=== PATIENT | female | born 1965 | race Caucasian/White ===

== ENCOUNTER 2016-05-14 11:30 | Outpatient (RCR) | payer MEDICARE, MEDICAID ==
[~2016-05-14 11:30] MED LIST: CRANBERRY FRUI405 MG PO; DEBROX OT; DURICEF500 MG PO; FLUOCINONIDE0.05% TP; FOLIC ACID0.8 MG PO; MOBIC 7.5MG7.5 MG PO; MULTI VITAMINS1 TAB PO; PRILOSEC 20MG20 MG PO; TYLENOL 325MG325 MG PO; UNABLE; VICKS VAPORUB TP; VITAMIN C500 MG PO; [UNRECOGNIZED DRUG - OTHER]
[2016-05-17] MEDS ORDERED: FOLIC ACID 11 MG/TA1 PO (12:20)
[2016-05-17] MEDS ORDERED: VITAMIN C500 MG PO (12:20)
[2016-05-17] MEDS ORDERED: CRANBERRY FRUI425 MG PO (12:21)
[2016-05-17] MEDS ORDERED: PRILOSEC 20MG20 MG PO (12:21)
[2016-05-17] MEDS ORDERED: MOBIC 7.5MG7.5 MG PO (12:22)
[2016-05-17] MEDS ORDERED: ZYRTEC 10MG10 MG PO (12:25)
[2016-05-17] MEDS ORDERED: DEBROX OT (12:25)
[2016-05-17] MEDS ORDERED: FLONASEALLERGY NS (12:25)
== END 2016-05-17 14:25 | disposition home or self-care (01) ==
LOC: WSPT 11:30
DX: R26.89 Other abnormalities of gait and mobility (principal)
CPT/HCPCS: G8979-GP; G8980-GP

== ENCOUNTER 2016-05-17 11:42 | Emergency (ER) | payer MEDICARE, MEDICAID ==
[~2016-05-17] VITALS: Ht 152.4 cm; Wt 50.0 kg
[2016-05-17 11:45] VITALS: TEMP 98.2
[2016-05-17] MEDS ORDERED: VITAMIN C500 MG PO (12:20)
[2016-05-17] MEDS ORDERED: FOLIC ACID 11 MG/TA1 PO (12:20)
[2016-05-17] MEDS ORDERED: PRILOSEC 20MG20 MG PO (12:21)
[2016-05-17] MEDS ORDERED: CRANBERRY FRUI425 MG PO (12:21)
[2016-05-17] MEDS ORDERED: MOBIC 7.5MG7.5 MG PO (12:22)
[2016-05-17] MEDS ORDERED: FLONASEALLERGY NS (12:25)
[2016-05-17] MEDS ORDERED: ZYRTEC 10MG10 MG PO (12:25)
[2016-05-17] MEDS ORDERED: DEBROX OT (12:25)
[2016-05-17 12:27] LABS: BASO % 0.5 % (0.0-2.0); EOS # 0.2 (0.0-0.7); EOS % 2.3 % (0-4.0); GRAN # 5.8 (1.4-6.5); GRAN % 66.3 % (42.2-75.2); LYMPH # 1.9 (1.2-3.4); LYMPH % 22.2 % (20.0-51.0); MEAN CELL VOLUME 92 fl (80.0-100.0); MEAN CORPUSCULAR HGB CONC 31 g/dl (33.0-37.0); MEAN PLATELET VOLUME 10.3 fl (7.4-10.4); MONO # 0.7 (0.1-0.6); MONO % 8.5 % (1.7-9.3); PLATELET COUNT 197 K/mm3 (130-400); RED BLOOD COUNT 3.77 M/mm3 (4.10-5.30); REDCELL DISTRIBUTION WIDTH-CV 13.8 % (11.5-14.5); WHITE BLOOD COUNT 8.7 K/mm3 (4.8-10.8)
[2016-05-17 12:30] LABS: ADJUSTED CALCIUM 9.5 mg/dL (8.4-10.2); ALBUMIN 3.8 gm/dL (3.5-5.0); BILIRUBIN,TOTAL 0.8 mg/dL (0.0-1.0); CALCIUM 9.3 mg/dL (8.4-10.2); CREATININE, serum 0.64 mg/dL (0.52-1.25); HEMATOCRIT 34.7 % (37.0-47.0); HEMOGLOBIN 10.8 g/dl (12.5-16.0); MEAN CORPUSCULAR HEMOGLOBIN 29 pg (27.0-31.0); POTASSIUM 5.4 mmol/L (3.4-5.0); TOTAL PROTEIN 6.7 gm/dL (6.4-8.2)
[2016-05-17 13:10] LABS: PH 5 (5-8); SQUAMOUS EPITHELIAL 0-2 /hpf; URINE APPEARANCE Clear; URINE BACTERIA Rare /hpf; URINE BILIRUBIN Negative (NEGATIVE); URINE BLOOD Negative (NEGATIVE); URINE COLOR Yellow; URINE GLUCOSE Negative (NEGATIVE); URINE KETONE Negative (NEGATIVE); URINE RBC 0-2 /hpf; URINE UROBILINOGEN Negative (NEGATIVE); URINE WBC 0-2 /hpf
[2016-05-17 13:48] VITALS: BP 128/78; PULSE 88
== END 2016-05-17 13:50 | disposition home or self-care (01) ==
LOC: COL.ER 11:42
PROVIDERS: Emergency Medicine
DX: S30.0XXA Contusion of lower back and pelvis, initial encounter (principal); S30.1XXA Contusion of abdominal wall, initial encounter; W18.30XA Fall on same level, unspecified, initial encounter; Y92.199 Unspecified place in other specified residential institution as the place of occurrence of the external cause; W50.0XXA Accidental hit or strike by another person, initial encounter; E86.0 Dehydration

== ENCOUNTER 2016-06-04 10:40 | Emergency (ER) | payer MEDICARE, MEDICAID ==
[~2016-06-04 10:40] MED LIST changes: +CRANBERRY FRUI425 MG PO; +FLONASEALLERGY NS; +FOLIC ACID 11 MG/TA1 PO; +ZYRTEC 10MG10 MG PO
[2016-06-04 10:42] VITALS: PULSE 82; TEMP 97.4
[2016-06-04] MEDS ORDERED: ZOO CHEWS1 CTB PO (11:17)
[2016-06-04 12:05] VITALS: BP 118/91
== END 2016-06-04 12:05 | disposition home or self-care (01) ==
LOC: COL.ER 10:40
DX: S93.402A Sprain of unspecified ligament of left ankle, initial encounter (principal); W23.1XXA Caught, crushed, jammed, or pinched between stationary objects, initial encounter

== ENCOUNTER 2017-01-21 13:00 | Outpatient (RCR) | payer MEDICARE, MEDICAID ==
[~2017-01-21 13:00] MED LIST changes: +ZOO CHEWS1 CTB PO
== END 2017-03-05 12:25 | disposition home or self-care (01) ==
LOC: MKS.ESL.PT 13:00
DX: Q02 Microcephaly (principal); Z74.09 Other reduced mobility
CPT/HCPCS: G8978-GP; G8979-GP; G8987-GO; G8988-GO; G8989-GO

== ENCOUNTER → 2017-02-06 | Outpatient (CLI) | payer MEDICARE, MEDICAID | LOC: MC.RAD 13:00 | DX: Z01.89 Encounter for other specified special examinations (principal) ==

== ENCOUNTER → 2017-02-20 | Emergency (ER) | payer MEDICARE, MEDICAID ==
[~2017-02-20] VITALS: Ht 152.4 cm; Wt 47.0 kg
[2017-02-20 14:39] VITALS: TEMP 97.6
[2017-02-20 20:41] VITALS: BP 103/75; PULSE 85
== END ==
LOC: COL.ER 14:10
DX: S00.81XA Abrasion of other part of head, initial encounter (principal); G80.9 Cerebral palsy, unspecified; W10.2XXA Fall (on)(from) incline, initial encounter
CPT/HCPCS: J2060

== ENCOUNTER 2017-03-14 05:41 | Day surgery (SDC) | payer MEDICARE, MEDICAID ==
[2017-03-14] VITALS (9 sets, daily range): BP systolic 111–134; BP diastolic 72–94; PULSE 75–95; TEMP 97.5–98.5
[~2017-03-14] VITALS: Ht 152.4 cm; Wt 49.2 kg
[2017-03-14] MEDS ORDERED: FOLIC ACID 11 MG/TA1 PO (06:08)
[2017-03-14] MEDS ORDERED: VICKS VAPORUB 41 OIN TOP (06:11)
== END 2017-03-14 13:58 | disposition home or self-care (01) ==
LOC: SDCO 05:41
DX: K08.89 Other specified disorders of teeth and supporting structures (principal); F79 Unspecified intellectual disabilities; G80.9 Cerebral palsy, unspecified; Q02 Microcephaly; J30.2 Other seasonal allergic rhinitis; M19.90 Unspecified osteoarthritis, unspecified site; K21.9 Gastro-esophageal reflux disease without esophagitis; Z90.710 Acquired absence of both cervix and uterus
CPT/HCPCS: J0690; J2370; J2405; J2704; J3010; J7120

== ENCOUNTER 2018-06-11 13:45 | Outpatient (RCR) | payer MEDICARE, MEDICAID ==
[~2018-06-11 13:45] MED LIST changes: +VICKS VAPORUB 41 OIN TOP
== END 2018-06-24 | disposition home or self-care (01) ==
LOC: MKS.ESL.PT
DX: Q02 Microcephaly (principal); R26.9 Unspecified abnormalities of gait and mobility; J30.2 Other seasonal allergic rhinitis; K44.9 Diaphragmatic hernia without obstruction or gangrene
CPT/HCPCS: G8978-GP; G8979-GP